=== PATIENT | female | born 1995 | race Caucasian/White ===

== ENCOUNTER 2016-07-18 11:08 | Inpatient (IN) ==
[2016-07-18 12:43] LABS: URINE CULTURE PL NEEDED? NO; URINE SOURCE CLEAN CATCH
[2016-07-18 12:51] LABS: BILIRUBIN URINE NEGATIVE (NEGATIVE); BLOOD URINE NEGATIVE (NEGATIVE); CLARITY CLEAR (CLEAR); COLOR YELLOW; GLUCOSE URINE NEGATIVE (NEGATIVE); LEUKOCYTES URINE 1+ (NEGATIVE); NITRITE URINE NEGATIVE (NEGATIVE); PROTEIN URINE TRACE mg/dL (NEGATIVE); SP GRAVITY URINE 1.005; UROBILINOGEN URINE NORMAL
[2016-07-18 13:01] LABS: URINE EPITHELIAL CELLS >10 /HPF (<10); URINE WBC <10 /HPF (<10)
[2016-07-18] MEDS ORDERED: PROTONIX IV ONE (13:08)
[2016-07-18] MEDS ORDERED: NS 1,000 ML IV ONE (13:08)
[2016-07-18] MEDS ORDERED: SODIUM CHLORIDE 0.9% INJ ONE ×2 (13:08→16:44)
[2016-07-18] MEDS ORDERED: ZOFRAN IV ONE (13:08)
--- NOTE | 2016-07-18 13:16 | PROVIDER DOCUMENTATION ---
HPI-Abdominal Pain/GI Problem - General Source: patient, family - History of Present Illness-ABD Nature of Presenting Problems: Pt is 21 y/o F presents to the ED with epigastric pain. Pt states hx of pain. Pt states N/V/D. Pt denies F. Pt states any food makes pain worse. Abdominal Pain Onset Location: reports: epigastric Pain Radiation: reports: no radiation Quality of Pain: reports: aching Severity in ED: reports: mild Onset/Duration: reports: unsure Timing: reports: still present, intermittent Activities at Onset: reports: light activity Exposure to sick contacts?: No Modifying Factors: improves with: nothing Associated Symptoms: reports: diarrhea, nausea, vomiting Last BM: unsure Dark Stools Present?: reports: none noticed Rectal Bleeding: reports: none Rectal Pain: reports: none # of Vomiting Episodes: 4 Emesis Description: reports: clear Bruising or Bleeding Gums?: No Similar Symptoms Previously?: Yes Recently seen or treated by another doctor?: No <Amelia Honeycutt - Last Filed: 07/18/16 15:03> <Tavo Sommers - Last Filed: 07/18/16 15:07> - General Chief Complaint: N/V/D Stated Complaint: ABD PX Time Seen by Provider: 07/18/16 12:46 Allergies/Adverse Reactions: Patient Allergies Allergy/AdvReac Type Severity Reaction Status Date / Time No Known Allergies Allergy Unverified 04/29/13 20:15 Home Medications: Home Medication List Medication Instructions Recorded Confirmed Last Taken Type Magnesium 400 mg PO TID 08/12/12 08/12/12 08/09/12 History Potassium Chloride E.r. [K-Dur] 40 meq PO TID 08/12/12 08/12/12 08/09/12 History Spironolactone [Aldactone] 25 mg PO BID 08/12/12 08/12/12 08/09/12 History Famotidine [Pepcid] 20 mg PO DAILY #20 tablet 02/27/16 Unknown Rx Ketorolac [Toradol] 10 mg PO Q6H PRN PRN #20 tablet 02/27/16 Unknown Rx Review of Systems - Adult - REVIEW OF SYSTEMS - ADULT Constitutional: denies: chills, fever Eyes: denies: blurred vision, double vision Ears, Nose, Mouth & Throat: denies: ear pain, nose pain, throat pain Cardiovascular: reports: irregular heart rate (tachy). denies: chest pain, heart murmur Respiratory: denies: cough, shortness of breath, wheezing Gastrointestinal: reports: abdominal pain (epigastric), diarrhea, nausea, poor appetite, vomiting Genitourinary: denies: dysuria, hematuria Musculoskeletal: denies: bone pain, joint pain, neck pain Integumentary: denies: hives, itching Neurological: denies: dizziness/vertigo, headache/migraines Psychiatric: reports: no symptoms reported Endocrine: reports: no symptoms reported Hematologic/Lymphatic: reports: no symptoms reported Allergic/Immunologic: reports: no symptoms reported All Other Systems: Reviewed and Negative <Amelia Honeycutt - Last Filed: 07/18/16 15:03> Past History - Adult - PAST MEDICAL HISTORY-ADULT Review of Records: reports: Nursing Assessment Review, Medications Reviewed, Social history reviewed & non-contributory. Major Childhood Illnesses: reports: denies history Cardiovascular: reports: denies history Respiratory: reports: denies history Gastrointestinal: reports: denies history Obstetrical/Gynecological: reports: denies history Genitourinary: reports: kidney disease Musculoskeletal: reports: denies history Neurological: reports: denies history Endocrine/Immune: reports: denies history Other Conditions: reports: denies history - PRIOR SURGERIES/PROCEDURES Surgical/Procedure History: reports: reviewed, not pertinent - IMMUNIZATION STATUS Childhood Immunizations: See Nurse Assessment Flu Vaccine: See Nurse Assessment - FAMILY HISTORY Family History: reviewed, not pertinent - SOCIAL HISTORY Smoking: denies Substance Use: denies Living Situation: family <Amelia Honeycutt - Last Filed: 07/18/16 15:03> Physical Exam-General - PHYSICAL EXAM-ADULT Initial Vital Signs Reviewed: Yes - CONSTITUTIONAL General Appearance: appears well, alert, no apparent distress - EYES Eyes: PERRL/EOMI, pink conjunctivae, fundi clear, no AV nicking - HEAD, EARS, NOSE, MOUTH & THROAT HENMT: normocephalic/atraumatic, moist mucous membranes, normal ENT inspection, TMs normal, pharynx normal - NECK Neck: non-tender, full range of motion, supple, normal inspection - RESPIRATORY Respiratory: chest non-tender, lungs clear, normal breath sounds, no pleuratic chest pain, no respiratory distress, no accessory muscle use - CARDIOVASCULAR Cardiovascular: normal peripheral pulses, no edema, no gallop, no JVD, no murmur , tachycardia - GASTROINTESTINAL (ABDOMEN) Abdominal Exam: normal bowel sounds, non tender, soft, no organomegaly, no pulsatile mass - LYMPHATIC Lymphatic: no adenopathy - MUSCULOSKELETAL Back Exam: normal inspection, no CVA tenderness, no vertebral tenderness Extremity: normal range of motion, non-tender, normal gait, normal inspection, no pedal edema, no calf tenderness, normal capillary refill - SKIN Integumentary: normal color, normal turgor, warm/dry - NEUROLOGIC Neurologic: certified substance abuse counselor II-XII nml as tested, grossly normal, no motor/sensory deficits - PSYCHIATRIC Psych/Mental Status: normal mood/affect, normal thought content, normal thought process, oriented x 3 <Amelia Honeycutt - Last Filed: 07/18/16 15:03> Progress - PLAN OF CARE/RESULTS Progress/Plan/Lab Results: Laboratory Tests 07/18/16 07/18/16 07/18/16 11:27 11:27 13:12 WBC RBC Hgb Hct MCV MCH MCHC RDW Std Deviation Plt Count MPV Immature Gran % (Auto) Neut % (Auto) Lymph % (Auto) [place] % (Auto) Eos % (Auto) Baso % (Auto) Immature Gran # (Auto) Neut # (Auto) Lymph # (Auto) [place] # (Auto) Eos # (Auto) Baso # (Auto) Sodium 138 Potassium 2.3 L* Chloride 94 L Carbon Dioxide 31 Anion Gap 13 BUN 10 Creatinine 0.7 Estimated GFR/1.73 m2 > 60 BUN/Creatinine Ratio 14 Glucose 110 H Calculated Osmolality 275 Calcium 8.7 L Total Bilirubin 0.50 AST 25 ALT 17 Alkaline Phosphatase 92 Total Protein 7.4 Albumin 4.1 Globulin 3.0 Albumin/Globulin Ratio 1.0 Lipase 25 Urine Source CLEAN CATCH Urine Color YELLOW Urine Clarity CLEAR Urine pH 8.0 Ur Specific [place] 1.005 Urine Protein TRACE A Urine Ketones NEGATIVE Urine Blood NEGATIVE Urine Nitrite NEGATIVE Urine Bilirubin NEGATIVE Urine Urobilinogen NORMAL Urine Microscopic RBC Not Reportable Urine WBC 1+ A Urine Microscopic WBC <10 Ur Epithelial Cells >10 A Urine Glucose NEGATIVE Urine Test NEGATIVE 07/18/16 13:12 WBC 13.28 H RBC 4.48 Hgb 13.7 Hct 38.2 MCV 85.3 MCH 30.6 MCHC 35.9 RDW Std Deviation 13.1 Plt Count 264 MPV 10.5 H Immature Gran % (Auto) 0.2 Neut % (Auto) 91.5 H Lymph % (Auto) 5.4 L [place] % (Auto) 2.6 Eos % (Auto) 0.2 Baso % (Auto) 0.1 Immature Gran # (Auto) 0.03 Neut # (Auto) 12.15 H Lymph # (Auto) 0.72 L [place] # (Auto) 0.34 Eos # (Auto) 0.03 Baso # (Auto) 0.01 Sodium Potassium Chloride Carbon Dioxide Anion Gap BUN Creatinine Estimated GFR/1.73 m2 BUN/Creatinine Ratio Glucose Calculated Osmolality Calcium Total Bilirubin AST ALT Alkaline Phosphatase Total Protein Albumin Globulin Albumin/Globulin Ratio Lipase Urine Source Urine Color Urine Clarity Urine pH Ur Specific [place] Urine Protein Urine Ketones Urine Blood Urine Nitrite Urine Bilirubin Urine Urobilinogen Urine Microscopic RBC Urine WBC Urine Microscopic WBC Ur Epithelial Cells Urine Glucose Urine Test Orders Category Date Time Status Saline Loc NOW Care 07/18/16 13:07 Active FLAT/UPRIGHT ABD/1 VIEW CHEST [RAD] Stat Exams 07/18/16 13:51 Ordered CBC WITH DIFF [HEME] Stat Lab 07/18/16 13:12 Completed COMPREHENSIVE METABOLIC PANEL [CHEM] Stat Lab 07/18/16 13:12 Completed LIPASE [CHEM] Stat Lab 07/18/16 13:12 Completed TEST-URINE [PREG] Stat Lab 07/18/16 11:[address] W/POSS RFLX CULT [URINALYSIS] Stat Lab 07/18/16 11:27 Completed 0.9% Sodium Chloride Inj [Ns] 1,000 ml Med 07/18/16 13:08 Active IV 999 mls/hr Ns + KCl 20 Meq 1,000 ml Med 07/18/16 14:00 Active IV 500 mls/hr Ondansetron [Zofran] Med 07/18/16 13:08 Discontinued 4 mg IV NOW ONE Pantoprazole [Protonix] Med 07/18/16 13:08 Discontinued 40 mg IV NOW ONE Sodium Chloride 0.9% Med 07/18/16 13:08 Discontinued 10 ml INJ NOW ONE EKG [EKG] Stat Ther 07/18/16 13:51 Ordered Vital Signs - 24 hr 07/18/16 11:24 Temperature 98.3 F Pulse Rate 100 H Respiratory 18 Rate Blood Pressure 117/071 O2 Sat by Pulse 98 Oximetry - EKG 1 Time of EKG reading by physician:: 13:49 EKG Read and Signed by:: Indra Haddad EKG Interpretation (*Must complete 3 of following elements*): Abnormal Rate: 100 Rhythm: normal sinus rhythm Comments: low voltage QRS; nonspecific ST and T wave abnormality. - XRAY 1 XRAY: Bilateral XRAY Study: Chest, Abdomen Impression: Normal XRAY Interpretation: no acute disease - CONSULTS/PCP/HOSPITALIST Notification #1 *Consult/PCP/Hospitalist*: Dr. Scales Time Discussed: 15:04 (Dr. Scales accepted admit ) Reason/Comments: JOANA Carrillo consulted with Dr. Scales about admit of PT Consult Disposition: Admit <Amelia Honeycutt - Last Filed: 07/18/16 15:03> Departure <Amelia Honeycutt - Last Filed: 07/18/16 15:03> - Departure Time of Disposition Order: 15:06 Certified Medical Emergency: Emergent <Tavo Sommers - Last Filed: 07/18/16 15:07> - Departure DIAGNOSIS: Gitelman syndrome, Hypokalemia, Hypomagnesemia Intractable nausea and vomiting Qualifiers: Vomiting type: unspecified Qualified Code(s): R11.2 - Nausea with vomiting, unspecified Disposition: ADMITTED INPATIENT 09 Condition: Stable Attestation - Scribe Verification/Attestation Scribe:: Amelia Honeycutt Acting as Scribe for:: Tavo Sommers Scribe documention review:: This chart was documented by a scribe and accurately reflects the service the provider performed and the decisions made by the provider. <Amelia Honeycutt - Last Filed: 07/18/16 15:03> - Physician/ PA Attestation Patient care was provided by Advanced Practice Provider:: Yes Advanced Practice Provider:: Tavo Sommers Advanced Practice Provider documentation review:: The Mid-level provider documentation, treatment plan and medical decision making was reviewed by the physician who agrees with all treatment and medical decision making by the P. <Tavo Sommers - Last Filed: 07/18/16 15:07> Physician Attestation
[2016-07-18 13:17] LABS: MANUAL DIFF NEEDED? NO
[2016-07-18 13:21] LABS: BASO% 0.1 % (0.0-0.8); EOS# 0.03 X1000 (0.0-0.7); EOS% 0.2 % (0.0-10.0); HEMATOCRIT 38.2 % (37.0-47.0); HEMOGLOBIN 13.7 g/dL (12.0-16.0); IMM GRAN# 0.03 X1000 (0.0-0.04); IMM GRAN% 0.2 % (0.0-0.5); LYMPH# 0.72 X1000 (1.2-3.4); LYMPH% 5.4 % (20.5-51.1); MCH 30.6 PG (27-31); MCHC 35.9 g/dL (33-37); MCV 85.3 FL (81-99); MONO# 0.34 X1000 (0.11-0.59); MONO% 2.6 % (1.7-9.3); MPV 10.5 FL (7.4-10.4); NEUT% 91.5 % (42.2-75.2); PLT 264 X1000 (130-400); RBC 4.48 XMIL (4.2-5.4)
[2016-07-18 13:47] LABS: AGAP 13; ALBUMIN 4.1 g/dL (3.5-5.0); ALKALINE PHOSPHATASE 92 U/L (32-104); BUN 10 mg/dL (8-22); CALCIUM 8.7 mg/dL (8.8-10.2); CHLORIDE 94 mmol/L (98-107); COSMO 275; GOT 25 U/L (10-30); GPT 17 U/L (10-36); LIPASE 25 U/L (13-60); SODIUM 138 mmol/L (136-145); TCO2 31 mmol/L (25-35); TOTAL PROTEIN 7.4 g/dL (6.3-8.3)
[2016-07-18 13:48] LABS: POTASSIUM 2.3 mmol/L (3.5-5.1)
--- NOTE | 2016-07-18 14:05 | EKG Report ---
Test Performed on : 07/18/2016 1:49:35 PM Test Reason : LOW K Blood Pressure : / mmHG Vent. Rate : 100 BPM Atrial Rate : 100 BPM P-R Int : 158 ms QRS Dur : 102 ms QT Int : 378 ms P-R-T Axes : 030 006 -05 degrees QTc Int : 487 ms Normal sinus rhythm. Low voltage QRS Nonspecific ST and T wave abnormality Abnormal ECG When compared with ECG of 24-JUN-2012 15:59, Criteria for Septal infarct are no longer present QT has lengthened Unconfirmed Result
[2016-07-18] MEDS: NS + KCL 20 MEQ 1,000 ML IV SCH ×2 (14:44→17:20)
[2016-07-18] MEDS ORDERED: MAG-OX PO ONE (14:58)
--- NOTE | 2016-07-18 15:10 | Diag Imaging Result Document ---
PROCEDURE NAME: FLAT/UPRIGHT ABD/1 VIEW CHEST - 07/18/2016 FLAT AND UPRIGHT, CHEST, 4 VIEWS: FINDINGS: The lungs are well expanded. Heart is not enlarged. No pneumonia. No free air beneath the diaphragm. No bowel obstruction. No organomegaly. No foreign body. No abnormal abdominal calcifications. No pelvic calcifications. IMPRESSION: No acute abnormality.
[2016-07-18] MEDS ORDERED: PROTONIX IV SCH (16:45)
[2016-07-18] MEDS ORDERED: MAGNESIUM SULFATE 4 GM/S.W.I. 100 ML IV ONE (16:46)
[2016-07-18] MEDS ORDERED: ZOFRAN IV PRN (16:46)
[2016-07-18] MEDS ORDERED: MORPHINE IV PRN (16:46)
[2016-07-18] MEDS ORDERED: TYLENOL PO PRN (16:47)
[2016-07-18] MEDS ORDERED: SODIUM CHLORIDE 0.9% INJ PRN (16:48)
[2016-07-18] MEDS ORDERED: PHENERGAN IV PRN (16:48)
[2016-07-18] MEDS: NS + KCL 40 MEQ 1,000 ML IV SCH (17:19)
--- NOTE | 2016-07-18 17:22 | HISTORY AND PHYSICAL ---
CHIEF COMPLAINT: Nausea. Vomiting. 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 She has been here multiple times, but she has never been admitted. She came in for intractable nausea, vomiting starting this morning. She has episodes like this maybe once a month, but never severe enough that she has come into the hospital. She is chronically hypokalemic and magnesemic due to her Gitelman syndrome and takes supplementation, but she has not been able to keep her medications down and therefore came in for evaluation. Potassium was low around 2 and her magnesium was almost 1, 1.2. She was placed in observation for nausea, vomiting, hypokalemia, hypomagnesemia. Other workup in the ER was unremarkable. She does report abdominal pain, which is fairly chronic, some diarrhea, no dysuria. PAST MEDICAL HISTORY: Gitelman syndrome. PAST SURGICAL HISTORY: Denies. FAMILY HISTORY: Mother has hypertension. SOCIAL HISTORY: No tobacco or ethanol. ALLERGIES: No known drug allergies. MEDICATIONS: Aldactone 25 b.i.d. Klor-Con 40 t.i.d. Magnesium 400 t.i.d. Toradol p.r.n. Pepcid. REVIEW OF SYSTEMS: Otherwise negative times a 10 point review of systems. PHYSICAL EXAMINATION: VITAL SIGNS: Blood pressure was stable, 127/59, heart rate 105, respiratory rate 20, temperature 99.3 degrees. GENERAL: A well-developed female, in no acute distress. HEAD: Normocephalic, atraumatic. EYES: Pupils equal, round, reactive to light. Extraocular movements were intact. EAR/NOSE/THROAT: She had moist mucous membranes. NECK: Supple. CARDIOVASCULAR: Regular rate and rhythm. No murmurs, gallops, or rubs. PULMONARY: Bilateral breath sounds. Clear to auscultation. GI: Soft, nontender, nondistended. Bowel sounds are positive. EXTREMITIES: No clubbing or cyanosis. LYMPHATICS: No peripheral edema. NEUROLOGICAL: Nonfocal. PERTINENT DATA: Laboratory data, potassium was 2.6. Her magnesium was 1.2. The rest of her labs were unremarkable. Urine was not a great sample but it was unremarkable. A little bit of a white count 13,000. Plain films reportedly did not show any acute pathology. PROBLEM LIST: This is a 21-year-old with Gitelman syndrome, presenting with intractable nausea, vomiting, hypokalemia, hypomagnesemia. 1. Intractable nausea, vomiting: Continue IV fluids antiemetics and follow clinically. 2. Hypokalemia: We will supplement and follow. 3. Hypomagnesemia: We will supplement and follow levels. 4. Disposition: Hopefully discharge in next 24 hours once clinically improved.
[2016-07-18] MEDS ORDERED: BENADRYL PO ONE (20:46)
[2016-07-18] MEDS ORDERED: SOLU-MEDROL IV ONE (21:07)
[2016-07-19 07:06] LABS: HEMATOCRIT 37.4 % (37.0-47.0); HEMOGLOBIN 13.3 g/dL (12.0-16.0); MCHC 35.6 g/dL (33-37); MCV 84.4 FL (81-99); MPV 11.7 FL (7.4-10.4); RBC 4.43 XMIL (4.2-5.4)
[2016-07-19 07:29] LABS: AGAP 11; BUN 7 mg/dL (8-22); CHLORIDE 94 mmol/L (98-107); COSMO 271; MAGNESIUM 2.3 mg/dL (1.5-2.7); SODIUM 135 mmol/L (136-145); TCO2 30 mmol/L (25-35)
[2016-07-19 07:31] LABS: POTASSIUM 2.1 mmol/L (3.5-5.1)
[2016-07-19] MEDS ORDERED: KLOR-CON PO ONE (11:20)
[2016-07-19] MEDS: KLOR-CON PO SCH ×2 (14:00→23:45)
[2016-07-19] MEDS: NS + KCL 40 MEQ 1,000 ML IV SCH ×2 (16:51→20:41)
[2016-07-19] MEDS ORDERED: BENADRYL IV ONE (20:31)
[2016-07-19] MEDS ORDERED: BENADRYL IV PRN (20:39)
[2016-07-19] MEDS: ALDACTONE PO SCH (22:46)
[2016-07-20] MEDS: NS + KCL 40 MEQ 1,000 ML IV SCH (06:15)
[2016-07-20 07:43] LABS: AGAP 11; BUN 8 mg/dL (8-22); CALCIUM 8.8 mg/dL (8.8-10.2); CHLORIDE 102 mmol/L (98-107); COSMO 278; MAGNESIUM 1.7 mg/dL (1.5-2.7); POTASSIUM 2.4 mmol/L (3.5-5.1); SODIUM 140 mmol/L (136-145); TCO2 27 mmol/L (25-35)
[2016-07-20] MEDS: ALDACTONE PO SCH ×2 (08:01→12:33)
[2016-07-20] MEDS: KLOR-CON PO SCH ×5 (08:01→21:39)
[2016-07-20] MEDS ORDERED: NS 500 ML ONE (08:59)
[2016-07-20] MEDS: POTASSIUM CHLORIDE 20 MEQ/SWI 100 ML IV SCH ×2 (09:01→11:51)
--- NOTE | 2016-07-20 09:31 | PROGRESS NOTE ---
DATE: 07/20/2016 SUBJECTIVE: The patient notes that she is feeling much better. She is not having any nausea or vomiting this morning. Denies any diarrhea or constipation. OBJECTIVE: Vital Signs Reviewed: Temperature 97 degrees, pulse 68, respiratory 17, BP 105/49. General: Patient is well developed, well nourished. She is currently in no respiratory distress. She is awake, alert. Neck: Supple. CV: Regular rate. Chest: Relatively clear. Abdomen: Soft. ASSESSMENT: Hypokalemia. Potassium is still 2.6. We will give her oral potassium, as well as intravenous potassium this morning. We will recheck her potassium. Will hold her Aldactone this morning. Hopefully home this afternoon if her potassium is better.
[2016-07-20] MEDS: MAG-OX PO SCH ×2 (12:34→21:39)
[2016-07-20 15:43] LABS: AGAP 9; BUN 6 mg/dL (8-22); CALCIUM 8.9 mg/dL (8.8-10.2); CHLORIDE 102 mmol/L (98-107); COSMO 274; POTASSIUM 3.1 mmol/L (3.5-5.1); SODIUM 138 mmol/L (136-145); TCO2 27 mmol/L (25-35)
[2016-07-21] MEDS: MAG-OX PO SCH (03:59)
[2016-07-21] MEDS: KLOR-CON PO SCH ×2 (04:01→08:47)
[2016-07-21 05:39] LABS: HEMATOCRIT 35.3 % (37.0-47.0); HEMOGLOBIN 12.1 g/dL (12.0-16.0); MCH 29.7 PG (27-31); MCHC 34.3 g/dL (33-37); MCV 86.7 FL (81-99); MPV 11.2 FL (7.4-10.4); RBC 4.07 XMIL (4.2-5.4)
[2016-07-21 05:52] LABS: AGAP 12; ALBUMIN 3.6 g/dL (3.5-5.0); ALKALINE PHOSPHATASE 67 U/L (32-104); BUN 5 mg/dL (8-22); CALCIUM 8.9 mg/dL (8.8-10.2); CHLORIDE 100 mmol/L (98-107); COSMO 277; GOT 19 U/L (10-30); GPT 18 U/L (10-36); POTASSIUM 2.9 mmol/L (3.5-5.1); SODIUM 140 mmol/L (136-145); TCO2 29 mmol/L (25-35); TOTAL PROTEIN 6.5 g/dL (6.3-8.3)
[2016-07-21 07:59] VITALS: BP 111/58
[2016-07-21] MEDS: ALDACTONE PO SCH (08:47)
--- NOTE | 2016-07-21 11:12 | DISCHARGE SUMMARY ---
ADMISSION DATE: 07/18/2016 DISCHARGE DATE: DISCHARGE DIAGNOSES: 1. Gitelman Syndrome. This requires her to remain on the Aldactone and potassium daily. 2. Severe hypokalemia, improving. Potassium is 2.9 to 3.1 on discharge. She will continued potassium supplementation, follow up outpatient. 3. Intractable nausea and vomiting, resolved. 4. Hypomagnesemia, resolved. CONSULTATIONS: Genaro Su MD was consulted via phone. PROCEDURES/BRIEF HOSPITAL COURSE: Patient is a 21-year-old female, who actually has a brother with Gitelman Syndrome. She was admitted with intractable nausea and vomiting. This thankfully has resolved. Her Aldactone was actually increased to 100 mg daily, which she tolerated much better. She will continue magnesium and potassium at home. She will be discharged home. She will follow up outpatient with her primary care, Dr. Nichols, as well as with Dr. Su. She will need to have her potassium level checked in 2 days and continue to adjust as needed. DISPOSITION: Patient is aware of the plan. She is ready to go home. She denies any nausea. She is awake alert. TIME SPENT: There was 35 minutes spent in discharge planning and instructions.
== END 2016-07-21 12:49 | disposition home or self-care (01) | DRG 700 ==
LOC: P.ED 11:08 → P.MEDSURG 11:09
PROVIDERS: ATTEND Family Medicine
DX: N25.89 Other disorders resulting from impaired renal tubular function (principal); Z82.49 Family history of ischemic heart disease and other diseases of the circulatory system; Z79.899 Other long term (current) drug therapy
CPT/HCPCS: 36415; 74022; 80048; 80053; 81001; 81025; 83690; 83735; 84132; 85025; 85027; 93005; 96361; 96365; 96366; 96375; C9113; J1200; J2405; J2930; J3475; J3480; J7030; J7040; S0164

== ENCOUNTER 2019-04-25 21:27 | Observation (INO) ==
[2019-04-25 22:25] LABS: BASO# 0.03 X1000 (0.0-0.2); BASO% 0.3 % (0.0-0.8); EOS# 0.23 X1000 (0.0-0.7); EOS% 2.1 % (0.0-10.0); HEMATOCRIT 36.3 % (37.0-47.0); HEMOGLOBIN 13.2 g/dL (12.0-16.0); IMM GRAN# 0.02 X1000 (0.0-0.04); IMM GRAN% 0.2 % (0.0-0.5); LYMPH# 2.93 X1000 (1.2-3.4); LYMPH% 26.8 % (20.5-51.1); MCH 31.4 PG (27-31); MCHC 36.4 g/dL (33-37); MCV 86.2 FL (81-99); MONO# 0.62 X1000 (0.11-0.59); MONO% 5.7 % (1.7-9.3); MPV 11.5 FL (7.4-10.4); NEUT# 7.09 X1000 (1.4-6.5); NEUT% 64.9 % (42.2-75.2); PLT 286 X1000 (130-400); RBC 4.21 XMIL (4.2-5.4); RDW 12.2 % (11.5-14.5); WBC 10.92 X1000 (4.8-10.8)
[2019-04-25 22:41] LABS: ESTIMATED GFR > 60
[2019-04-25 22:45] LABS: AGAP 14; ALBUMIN 4.4 g/dL (3.5-5.0); ALKALINE PHOSPHATASE 82 U/L (32-104); BUN 6 mg/dL (8-22); CALCIUM 8.4 mg/dL (8.8-10.2); CHLORIDE 93 mmol/L (98-107); COSMO 272; CREATININE 0.5 mg/dL (0.5-0.9); GLUCOSE 143 mg/dL (70-104); GOT 36 U/L (10-30); GPT 18 U/L (10-36); MAGNESIUM 1.2 mg/dL (1.5-2.7); SODIUM 136 mmol/L (136-145); TCO2 29 mmol/L (25-35); TOTAL PROTEIN 7.7 g/dL (6.3-8.3)
[2019-04-25] MEDS ORDERED: POTASSIUM CHLORIDE 20% LIQUID PO ONE (22:54)
[2019-04-25] MEDS ORDERED: MAGNESIUM SULFATE 2 GM/S.W.I. 2 GM/50 ML IVPB IV ONE (22:54)
[2019-04-25] MEDS ORDERED: ALDACTONE PO ONE (22:54)
--- NOTE | 2019-04-25 23:08 | PROVIDER DOCUMENTATION ---
This chart was entered by Yasmine Mendez Scribe, acting as scribe for Edgar Werner MD. HPI-General Adult - General Chief Complaint: General Adult Stated Complaint: DEHYDRATION Time Seen by Provider: 04/25/19 21:35 Source: patient Allergies/Adverse Reactions: Patient Allergies Allergy/AdvReac Type Severity Reaction Status Date / Time No Known Allergies Allergy Unverified 04/29/13 20:15 Home Medications: Home Medication List Medication Instructions Recorded Confirmed Last Taken Type Potassium Chloride E.r. [Klor-Con] 2 tab PO TID 08/12/12 04/25/19 07/17/16 History Spironolactone [Aldactone] 50 mg PO BID 08/12/12 04/25/19 07/17/16 History Magnesium 400 mg PO TID #90 tablet 07/21/16 04/25/19 Unknown Rx - History of Present Illness -Gen Adult Nature of Presenting Problems: pt is a 24 yr old female presenting with complaint of dry mouth, pt reports she is out of potassium and spirolactone x 3 days, pt has called her doctor but refill has not yet been called in. pt denies any other complaints Location of Pain/Injury: reports: none Pain Radiation: reports: no radiation Quality of Pain: reports: none Severity: reports: mild Onset/Duration: reports: gradual, 3 days ago Timing: reports: still present Context/Activities at Onset: reports: light activity Modifying Factors: improves with: nothing (out of medciations) Associated Symptoms: denies: back/neck pain, chest pain, fever/chills, genitourinary problems, shortness of breath, weakness Similar Symptoms Previously?: No Recently seen or treated by another doctor?: No Review of Systems - Adult - REVIEW OF SYSTEMS - ADULT Constitutional: denies: fever, fatique Eyes: reports: no symptoms reported Ears, Nose, Mouth & Throat: reports: other (dry mouth). denies: ear pain, sinus problem, throat pain Cardiovascular: denies: chest pain, palpitations, syncope Respiratory: denies: cough, shortness of breath Gastrointestinal: reports: no symptoms reported Genitourinary: reports: no symptoms reported Musculoskeletal: denies: back pain, neck pain Integumentary: reports: no symptoms reported Neurological: denies: dizziness/vertigo, headache/migraines Psychiatric: reports: no symptoms reported Endocrine: reports: no symptoms reported Hematologic/Lymphatic: reports: no symptoms reported Allergic/Immunologic: reports: no symptoms reported All Other Systems: Reviewed and Negative Past History - Adult - PAST MEDICAL HISTORY-ADULT Review of Records: reports: Old Records Reviewed, Nursing Assessment Review, Medications Reviewed, Social history reviewed & non-contributory. Major Childhood Illnesses: reports: denies history Cardiovascular: reports: denies history Respiratory: reports: denies history Gastrointestinal: reports: denies history Obstetrical/Gynecological: reports: denies history Genitourinary: reports: kidney disease Musculoskeletal: reports: denies history Neurological: reports: denies history Endocrine/Immune: reports: denies history Other Conditions: reports: denies history - PRIOR SURGERIES/PROCEDURES Surgical/Procedure History: reports: reviewed, not pertinent - IMMUNIZATION STATUS Childhood Immunizations: See Nurse Assessment Flu Vaccine: See Nurse Assessment - FAMILY HISTORY Family History: reviewed, not pertinent - SOCIAL HISTORY Smoking: denies Substance Use: denies Living Situation: family Physical Exam-General - PHYSICAL EXAM-ADULT Initial Vital Signs Reviewed: Yes - CONSTITUTIONAL General Appearance: appears well, alert, no apparent distress - EYES Eyes: PERRL/EOMI - HEAD, EARS, NOSE, MOUTH & THROAT HENMT: moist mucous membranes, normal ENT inspection - NECK Neck: non-tender, full range of motion, supple, normal inspection - RESPIRATORY Respiratory: lungs clear, normal breath sounds - CARDIOVASCULAR Cardiovascular: normal peripheral pulses, regular rate, rhythm, no edema - GASTROINTESTINAL (ABDOMEN) Abdominal Exam: normal bowel sounds, non tender, soft - LYMPHATIC Lymphatic: no adenopathy - MUSCULOSKELETAL Back Exam: normal inspection, no CVA tenderness, no vertebral tenderness Extremity: normal range of motion, non-tender, normal gait, normal inspection - SKIN Integumentary: normal color, normal turgor, warm/dry - PSYCHIATRIC Psych/Mental Status: normal mood/affect Progress - PLAN OF CARE/RESULTS Progress/Plan/Lab Results: Vital Signs - 8 hr 04/25/19 21:32 Temperature 98.0 F Pulse Rate 87 Respiratory Rate 18 Blood Pressure 130/81 O2 Sat by Pulse Oximetry 98 Result Diagrams: 04/25/19 22:11 04/25/19 22:11 - CONSULTS/PCP/HOSPITALIST Notification #1 *Consult/PCP/Hospitalist*: Gladish Time Discussed: 22:55 Reason/Comments: begin replace Mag, K+, admit to [facility] #2 Consult: Boby Time Discussed: 23:05 Consult Disposition: Admit Departure - Departure Date of Disposition Decision: 04/25/19 Time of Disposition Decision: 23:07 DIAGNOSIS: Hypokalemia, Hypomagnesemia, Gitelman syndrome Disposition: ADMITTED INPATIENT 09 Certified Medical Emergency: Emergent Condition: Stable Referrals and Follow-Ups: Yoselyn Nichols MD [Primary Care Provider] - - Critical Care Note This patient required my direct & personal management of CC.: No Attestation - Physician/ PA Attestation Patient care was provided by Advanced Practice Provider:: No The physician spent face to face time with patient:: Yes Advanced Practice Provider documentation review:: Supervising physician onsite a nd consulted in the evaluation and care of this patient. The physician did have a face to face encounter with the patient. This chart was documented by the indicated scribe, (Yasmine Mendez, Froyibrenetta) and accurately reflects the services I performed and decisions made by me, Edgar Werner MD, as attested by the provider's signature.
[2019-04-25] MEDS: POTASSIUM CHLORIDE 20 MEQ/SWI 20 MEQ/100 ML IVPB IV SCH ×2 (23:28→23:55)
[2019-04-25] MEDS ORDERED: NS 1,000 ML ONE (23:41)
[2019-04-25] MEDS ORDERED: NS 150 ML IV ONE (23:48)
[2019-04-26] MEDS ORDERED: NS 1,000 ML IV SCH (02:00)
[2019-04-26] MEDS ORDERED: POTASSIUM CHLORIDE 20 MEQ/SWI 20 MEQ/100 ML IVPB IV SCH (04:00)
[2019-04-26 06:52] LABS: BASO# 0.02 X1000 (0.0-0.2); BASO% 0.2 % (0.0-0.8); EOS# 0.17 X1000 (0.0-0.7); EOS% 1.5 % (0.0-10.0); HEMATOCRIT 33.2 % (37.0-47.0); HEMOGLOBIN 11.9 g/dL (12.0-16.0); IMM GRAN# 0.03 X1000 (0.0-0.04); IMM GRAN% 0.3 % (0.0-0.5); LYMPH# 4.07 X1000 (1.2-3.4); LYMPH% 36.3 % (20.5-51.1); MCH 31.2 PG (27-31); MCHC 35.8 g/dL (33-37); MCV 86.9 FL (81-99); MONO# 0.65 X1000 (0.11-0.59); MONO% 5.8 % (1.7-9.3); MPV 11.3 FL (7.4-10.4); NEUT# 6.28 X1000 (1.4-6.5); NEUT% 55.9 % (42.2-75.2); PLT 272 X1000 (130-400); RBC 3.82 XMIL (4.2-5.4); RDW 12.5 % (11.5-14.5); WBC 11.22 X1000 (4.8-10.8)
[2019-04-26 07:20] LABS: AGAP 12; ALB/GLOB RATIO 1.5; ALBUMIN 3.9 g/dL (3.5-5.0); ALKALINE PHOSPHATASE 73 U/L (32-104); BUN 5 mg/dL (8-22); CALCIUM 8.5 mg/dL (8.8-10.2); CHLORIDE 99 mmol/L (98-107); COSMO 278; CREATININE 0.6 mg/dL (0.5-0.9); ESTIMATED GFR > 60; GLUCOSE 87 mg/dL (70-104); GOT 25 U/L (10-30); GPT 16 U/L (10-36); MAGNESIUM 1.9 mg/dL (1.5-2.7); SODIUM 141 mmol/L (136-145); TCO2 30 mmol/L (25-35); TOTAL BILIRUBIN 0.86 mg/dL (0.20-1.00); TOTAL PROTEIN 6.5 g/dL (6.3-8.3)
[2019-04-26 07:27] LABS: POTASSIUM 2.1 mmol/L (3.5-5.1)
[2019-04-26] MEDS: KLOR-CON PO SCH ×2 (08:47→13:57)
[2019-04-26] MEDS: MAG-OX PO SCH ×2 (08:48→13:58)
[2019-04-26] MEDS ORDERED: ALDACTONE PO SCH (09:00)
--- NOTE | 2019-04-26 09:41 | HISTORY AND PHYSICAL ---
CHIEF COMPLAINT: Of dry mouth, cough. HISTORY OF PRESENT ILLNESS: Ms. Luciana Wise is a 24-year-old female, who has a history of Gitelman syndrome. She ran out of her potassium and she did experience some dry mouth as well as cramping. On presenting to the ER, the patient was found to have a potassium level that is very low about 2.0. Magnesium level was 1.2. The patient was started on both magnesium as well as potassium replacement. She has now been admitted to the floor now for further management. PAST MEDICAL HISTORY: Gitelman syndrome. PAST SURGICAL HISTORY: None. FAMILY HISTORY: Hypertension. SOCIAL HISTORY: No history of cigarette smoking. No alcohol or drug use. ALLERGIES: No known drug allergies. The patient's medications include the following. 1. Potassium chloride two tabs 3 times a day. 2. Spirolactone 50 mg p.o. twice a day. 3. Magnesium 400 mg p.o. 3 times a day. REVIEW OF SYSTEMS: Constitutional: No fever. PUBLIC HEALTH POLICY ANALYST: No headaches. Eyes: No blurred vision. ENT: No sinus point tenderness. Cardiovascular: No chest pain. Respiratory: No cough. GI: No nausea, vomiting. No diarrhea. No abdominal pains. : No dysuria. Psychiatric: No anxiety or depression. Hematology: No skin lesions. Musculoskeletal: Has cramps. EXAMINATION ON ADMISSION: Vital Signs Are As Follows: Temperature is 97.2 degrees, pulse 78, respiratory rate 18, blood pressure 109/58, oxygen saturation 100%. HEENT: Atraumatic, normocephalic. Extraocular movements intact. No significant oral lesions noted. She does have some hyperpigmented changes on her tongue. Neck: No lymphadenopathy or thyromegaly. Cardiovascular: S1, S2. Respiratory system: Has evidence of good air entry bilaterally. Abdomen: Soft, nontender. No masses felt. Extremities: No evidence of edema. Central nervous system: No obvious focal deficit noted. LABORATORY DATA: WBC is 10.92, hematocrit 36.3 platelet count of 286,000. Sodium is 136, potassium 2.0, chloride is 93, bicarb 29, BUN is 6, creatinine is 0.5. Blood glucose is 143. Calcium 8.4, magnesium 1.2. ASSESSMENT AND PLAN: Gitelman syndrome complicated with hypokalemia as well hypomagnesemia. We will plan for replacement of both potassium and magnesium. Plan for possible discharge later today if we can get levels to be within acceptable limits. cc: Trung Landis MD
[2019-04-26] MEDS ORDERED: KLOR-CON PO ONE (13:45)
[2019-04-26 15:29] VITALS: BP 107/60
--- NOTE | 2019-04-26 17:28 | DISCHARGE SUMMARY ---
ADMISSION DATE: 04/25/2019 DISCHARGE DATE: 04/26/291 PRIMARY CARE PHYSICIAN: She is a patient of Dr. Yoselyn Nichols. HISTORY AND HOSPITAL COURSE: A 24-year-old who has a history of a Gitelman syndrome. She ran out of her potassium and she experienced some dry mouth as well as cramping. Presented to the emergency room, found to have a potassium level very low at 2.0, magnesium was 1.2. So, we were able to supplement that with IV and gave her prescriptions. She felt much better, was eating, and wanted to go home. DISCHARGE MEDICATIONS: She will resume her usual ones. Magnesium 400 mg p.o. t.i.d., potassium which is Klor-Con, takes 2 tablets 3 times a day, and Aldactone 50 mg b.i.d. cc: Rufino Pat MD
== END 2019-04-26 18:37 | disposition home or self-care (01) ==
LOC: P.ED 21:27 → INTOOBSV 21:28 → 4N 21:28 → SUATTDRO 21:28
PROVIDERS: ATTEND Emergency Medicine